=== PATIENT | male | born 1965 | race Caucasian/White ===

== ENCOUNTER 2024-02-21 07:42 | Emergency (ER) | payer MEDICARE, BC ==
[2024-02-21 08:54] LABS: BASOPHILS ABSOLUTE AUTO 0.01 K/uL (0.00-0.20); BASOPHILS PERCENT AUTO 0.2 % (0.0-1.0); EOSINOPHILS ABSOLUTE AUTO 0.06 K/uL (0.00-0.45); EOSINOPHILS PERCENT AUTO 1.1 % (0.0-6.0); HEMATOCRIT 23.5 % (42.0-52.0); HEMOGLOBIN 8.2 g/dL (14.0-18.0); IMMATURE GRAN ABSOLUTE AUTO 0.25 K/uL (0.00-0.05); IMMATURE GRAN PERCENT AUTO 4.6 % (0.0-0.4); LYMPHOCYTES ABSOLUTE AUTO 1.03 K/uL (1.00-4.80); LYMPHOCYTES PERCENT AUTO 18.9 % (24.0-44.0); MEAN CORPUSCULAR HEMOGLOBIN 33.5 pg (28.0-32.0); MEAN CORPUSCULAR HGB CONC 34.9 g/dL (32.0-36.0); MEAN CORPUSCULAR VOLUME 95.9 fL (83.0-99.0); MEAN PLATELET VOLUME 9.1 fL (9.4-12.4); MONOCYTES ABSOLUTE AUTO 0.55 K/uL (0.00-0.80); MONOCYTES PERCENT AUTO 10.1 % (0.0-8.0); NEUTROPHILS ABSOLUTE AUTO 3.55 K/uL (1.80-7.70); NEUTROPHILS PERCENT AUTO 65.1 % (41.0-71.0); PLATELET COUNT,PLT 167 K/uL (150-400); RED BLOOD CELL COUNT 2.45 M/uL (4.52-5.90); WHITE BLOOD CELL COUNT,WBC 5.45 K/uL (3.9-11.3)
[2024-02-21 09:20] LABS: A/G RATIO 0.8 (0.9-1.6); ALBUMIN 2.5 g/dL (3.4-5.0); BILIRUBIN TOTAL 0.4 mg/dL (0.2-1.0); CALCIUM 8.9 mg/dL (8.5-10.1); CARBON DIOXIDE,CO2 28.2 mmol/L (21.0-32.0); CREATININE 6.4 mg/dL (0.8-1.3); EST CRCL DRUG DOSING (CG) 10.68 mL/min; POTASSIUM,K 3.9 mmol/L (3.5-5.1); PROTEIN TOTAL,TP 5.5 g/dL (6.4-8.2)
[2024-02-21] MEDS: Iopamidol 755 MG/ML 500 ML Multipack Bottle IVPUSH STA (11:36)
== END 2024-02-21 13:07 | disposition home or self-care (01) ==
LOC: MW.ED 07:42
DX: I10 Essential (primary) hypertension (principal); E78.00 Pure hypercholesterolemia, unspecified; J45.909 Unspecified asthma, uncomplicated; E10.9 Type 1 diabetes mellitus without complications; E66.9 Obesity, unspecified; Z68.37 Body mass index [BMI] 37.0-37.9, adult; M19.90 Unspecified osteoarthritis, unspecified site; Z90.49 Acquired absence of other specified parts of digestive tract; Z79.899 Other long term (current) drug therapy; Z79.82 Long term (current) use of aspirin; Z79.4 Long term (current) use of insulin; Z88.5 Allergy status to narcotic agent; Z91.018 Allergy to other foods; Z91.048 Other nonmedicinal substance allergy status
CPT/HCPCS: 36415; 71045; 71275; 80053; 84484; 85025; 93005; 99284; J1642; Q9967